=== PATIENT | female | born 1980 | race Caucasian/White ===

== ENCOUNTER 2017-10-02 13:21 | Outpatient (CLI) | payer OTHER | END 2017-10-02 13:22 | disposition home or self-care (01) | LOC: DI 13:21 | PROVIDERS: ATTEND Family Medicine | DX: R00.2 Palpitations (principal); R01.1 Cardiac murmur, unspecified | CPT/HCPCS: 93306 ==

== ENCOUNTER 2018-05-20 11:10 | Emergency (ER) | payer OTHER ==
[2018-05-20 11:30] VITALS: BP 120/70
--- NOTE | 2018-05-20 12:23 | ED Physician Documentation ---
PD HPI UPPER EXT INJURY - Stated complaint Stated Complaint: L HAND INJ - Chief complaint Chief Complaint: Ext Problem - History obtained from History obtained from: Patient - History of Present Illness Location: Left, Finger (5th digit.) Type of injury: Blunt / blow Where injury occurred: Work Timing - onset: Today Timing - duration: Minutes Timing - details: Abrupt onset, Still present Improved by: Rest, Immobilization Worsened by: Moving, Palpating Associated symptoms: Swelling, Discolored. 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 She has swelling and tenderness to the tip of the right fifth digit. There is ecchymosis to the tip of the finger. Review of Systems Constitutional: denies: Fever Respiratory: denies: Cough GI: denies: Vomiting : denies: Dysuria, Frequency Musculoskeletal: reports: Extremity pain Neurologic: denies: Generalized weakness, Focal weakness, Numbness PD PAST MEDICAL HISTORY - Present Medications Home Medications: Ambulatory Orders Medication Instructions Recorded Confirmed DULoxetine [Cymbalta] 05/20/18 Dimethyl Fumarate [Tecfidera] 120 mg PO 05/20/18 traMADol [Ultram] 50 mg PO Q4-6H #10 tablet 05/20/18 - Allergies Allergies/Adverse Reactions: Allergies Allergy/AdvReac Type Severity Reaction Status Date / Time azithromycin Allergy Unknown Verified 05/20/18 11:25 Sulfa (Sulfonamide Allergy Unknown Verified 05/20/18 11:24 Antibiotics) - Social History Does the pt smoke?: No Smoking Status: Never smoker PD ED PE NORMAL - Vitals Vital signs reviewed: Yes (normal ) - General General: Alert and oriented X 3, No acute distress, Well developed/nourished - HEENT HEENT: Atraumatic, PERRL - Respiratory Respiratory: No respiratory distress - Derm Derm: Normal color, Warm and dry - Extremities Extremities: No deformity, Other (There is swelling point tenderness and ecchymosis to the tip of the left 5th digit. ) - Neuro Neuro: No motor deficit, No sensory deficit Eye Opening: Spontaneous Motor: Obeys Commands Verbal: Oriented GCS Score: 15 - Psych Psych: Normal mood, Normal affect Results - Vitals Vitals: Vital Signs - 24 hr 05/20/18 11:25 Temperature 36.8 C Heart Rate 66 Respiratory 20 Rate Blood Pressure 120/70 O2 Saturation 100 Oxygen O2 Source Room air - Rads (name of study) left 5th Radiology: Prelim report reviewed (Impression: Acute nondisplaced transverse fracture of the tuft of the distal phalanx of the fifth digit.), EMP read indepedently, See rad report PD MEDICAL DECISION MAKING - ED course Complexity details: reviewed results, re-evaluated patient, considered differential, d/w patient ED course: 37 y/o female with a tuft fracture and no subungal hemtoma. she is treated conservatively - Sepsis Event Vital Signs: Vital Signs - 24 hr 05/20/18 11:25 Temperature 36.8 C Heart Rate 66 Respiratory 20 Rate Blood Pressure 120/70 O2 Saturation 100 Oxygen O2 Source Room air Departure - Departure Disposition: 01 Home, Self Care Clinical Impression: Closed fracture of tuft of distal phalanx of finger Condition: Stable Instructions: ED Fx Finger Closed Follow-Up: [facility] [Provider Group] Prescriptions: traMADol [Ultram] 50 mg PO Q4-6H #10 tablet Discharge Date/Time: 05/20/18 12:59
--- NOTE | 2018-05-20 13:03 | XRAY Report ---
Procedure Date: 05/20/2018 Accession Number: [id number] / [id number] Procedure: XR - Finger(s) LT CPT Code: FULL RESULT: EXAM: LEFT FIFTH DIGIT RADIOGRAPHY EXAM DATE: 05/20/2018 12:13 PM. CLINICAL HISTORY: LEFT 5TH DIGIT INJURY/pain. COMPARISON: None. TECHNIQUE: 3 views. FINDINGS: Bones: There is an acute nondisplaced transverse fracture of the tuft of the distal phalanx of the fifth digit. The remainder of visualized bones appear intact. Joints: Normal. No subluxations. Soft Tissues: There is soft tissue swelling around the distal phalanx of the fifth digit. IMPRESSION: Acute nondisplaced transverse fracture of the tuft of the distal phalanx of the fifth digit. [facility]
== END 2018-05-20 12:59 | disposition home or self-care (01) ==
LOC: ED 11:10
DX: S62.667A Nondisplaced fracture of distal phalanx of left little finger, initial encounter for closed fracture (principal); W31.89XA Contact with other specified machinery, initial encounter; Y99.0 Civilian activity done for income or pay
CPT/HCPCS: 73140; 99283